=== PATIENT | male | born 1990 | race African-American/Black ===

== ENCOUNTER 2016-12-12 13:25 | Emergency (ER) | payer OTHER ==
[~2016-12-12] VITALS: Ht 185.4 cm; Wt 92.1 kg
[2016-12-12 13:42] VITALS: BP 136/82
== END 2016-12-12 15:20 | disposition home or self-care (01) ==
LOC: ED 13:25
DX: S62.317A Displaced fracture of base of fifth metacarpal bone, left hand, initial encounter for closed fracture (principal); W22.8XXA Striking against or struck by other objects, initial encounter; Y93.89 Activity, other specified; Y99.8 Other external cause status; Y92.89 Other specified places as the place of occurrence of the external cause

== ENCOUNTER 2017-06-10 16:57 | Emergency (ER) | payer SELFPAY ==
[~2017-06-10] VITALS: Ht 185.4 cm; Wt 88.5 kg
[2017-06-10 17:10] VITALS: Ht 185.4 cm; Wt 88.5 kg
[2017-06-10 20:15] VITALS: BP 143/76
== END 2017-06-10 20:15 | disposition home or self-care (01) ==
LOC: ED 16:57
DX: J40 Bronchitis, not specified as acute or chronic (principal)

== ENCOUNTER 2018-06-23 17:26 | Emergency (ER) | payer OTHER ==
[~2018-06-23] VITALS: Ht 185.4 cm; Wt 90.7 kg
[2018-06-23 17:36] VITALS: Ht 185.4 cm; Wt 90.7 kg
[2018-06-23 18:43] VITALS: BP 164/76
== END 2018-06-23 18:43 | disposition home or self-care (01) ==
LOC: ED 17:26
DX: S02.2XXA Fracture of nasal bones, initial encounter for closed fracture (principal); W51.XXXA Accidental striking against or bumped into by another person, initial encounter; Y93.67 Activity, basketball; Y92.89 Other specified places as the place of occurrence of the external cause; Y99.8 Other external cause status